=== PATIENT | female | born 1980 | race Caucasian/White ===

== ENCOUNTER 2018-10-16 16:02 | Emergency (ER) | payer OTHER ==
[~2018-10-16] VITALS: Wt 110.0 kg
[2018-10-16] MEDS ORDERED: ATOR40TA68 PO (16:17)
[2018-10-16] MEDS ORDERED: SOD CHLORIDE 0.9% 1,000 ML IV STA (16:17)
[2018-10-16] MEDS ORDERED: KETOROLAC 30 MG INJ IV STA (16:17)
[2018-10-16] MEDS ORDERED: IBUP-1542 PO (18:05)
--- NOTE | 2018-10-16 18:08 | ERD ---
ER Documentation Chief Complaint Chief Complaint LEFT FLANK PAIN X 4 DAYS HPI Patient is a 38-year-old female with no medical problems who presents with left- sided flank pain. She said the pain started 4 days ago, went away, and then came back today. It radiates to her left lower quadrant. She has no fevers. She tried ibuprofen 600 mg. Upon review of old medical records the patient had one previous visit to the ER in 2015. She does have a primary doctor. ROS All systems reviewed and are negative except as per history of present illness. Medications Home Meds Active Scripts Ibuprofen* (Motrin*) 600 Mg Tab, 600 MG PO Q6H PRN for PAIN AND OR ELEVATED TEMP, #30 TAB Prov:ALYSIA JIMENEZ MD 10/16/18 Reported Medications Atorvastatin* (Atorvastatin*) 40 Mg Tablet, 40 MG PO QHS, #30 TAB 10/16/18 Allergies Allergies: Coded Allergies: Penicillins (Verified Allergy, Severe, 01/27/15) PMhx/Soc History of Surgery: No Anesthesia Reaction: No Hx Neurological Disorder: No Hx Respiratory Disorders: No Hx Cardiac Disorders: No Hx Psychiatric Problems: Yes (PT STATES, "3 TIMES".) Hx Miscellaneous Medical Probl: No Hx Alcohol Use: No Hx Substance Use: Yes Hx Tobacco Use: No Smoking Status: Never smoker FmHx Family History: diabetes Physical Exam Vitals Vital Signs Date Temp Pulse Resp B/P (MAP) Pulse Ox O2 O2 Flow FiO2 Time Delivery Rate 10/16/18 99.5 120 18 171/81 95 16:07 (111) Physical Exam Const: No acute distress Head: Atraumatic Eyes: Normal Conjunctiva ENT: Normal External Ears, Nose and Mouth. Neck: Full range of motion. No meningismus. Resp: Clear to auscultation bilaterally Cardio: Regular rate and rhythm, no murmurs Abd: Soft, non tender, non distended. Normal bowel sounds Skin: No petechiae or rashes Back: No midline or flank tenderness Ext: No cyanosis, or edema Neur: Awake and alert Psych: Normal Mood and Affect Result Diagram: 10/16/18 1631 10/16/18 1631 Results 24 hrs Laboratory Tests Test 10/16/18 16:31 10/16/18 16:40 White Blood Count 15.5 10^3/ul Red Blood Count 4.62 10^6/ul Hemoglobin 12.9 g/dl Hematocrit 40.0 % Mean Corpuscular Volume 86.6 fl Mean Corpuscular Hemoglobin 27.9 pg Mean Corpuscular Hemoglobin Concent 32.3 g/dl Red Cell Distribution Width 14.4 % Platelet Count 395 10^3/UL Mean Platelet Volume 11.0 fl Immature Granulocytes % 0.300 % Neutrophils % 65.1 % Lymphocytes % 29.3 % Monocytes % 4.0 % Eosinophils % 0.8 % Basophils % 0.5 % Nucleated Red Blood Cells % 0.0 /100WBC Immature Granulocytes # 0.050 10^3/ul Neutrophils # 10.1 10^3/ul Lymphocytes # 4.5 10^3/ul Monocytes # 0.6 10^3/ul Eosinophils # 0.1 10^3/ul Basophils # 0.1 10^3/ul Nucleated Red Blood Cells # 0.0 10^3/ul Urine Color YELLOW Urine Clarity SLIGHTLY CLOUDY Urine pH 5.0 Urine Specific [place] 1.023 Urine Ketones TRACE mg/dL Urine Nitrite NEGATIVE mg/dL Urine Bilirubin NEGATIVE mg/dL Urine Urobilinogen 1+ mg/dL Urine Leukocyte Esterase NEGATIVE Nery/ul Urine Microscopic RBC 15 /HPF Urine Microscopic WBC 2 /HPF Urine Squamous Epithelial Cells MODERATE /HPF Urine Mucus FEW /HPF Urine Hemoglobin 2+ mg/dL Urine Glucose NEGATIVE mg/dL Urine Total Protein NEGATIVE mg/dl Sodium Level 143 mmol/L Potassium Level 4.1 mmol/L Chloride Level 107 mmol/L Carbon Dioxide Level 28 mmol/L Anion Gap 8 Blood Urea Nitrogen 8 mg/dl Creatinine 0.68 mg/dl Est Glomerular Filtrat Rate mL/min > 60 mL/min Glucose Level 151 mg/dl Calcium Level 9.3 mg/dl Total Bilirubin 0.1 mg/dl Direct Bilirubin 0.00 mg/dl Indirect Bilirubin 0.1 mg/dl Aspartate Amino Transf (AST/SGOT) 30 IU/L Alanine Aminotransferase (ALT/SGPT) 54 IU/L Alkaline Phosphatase 85 IU/L Total Protein 7.6 g/dl Albumin 4.2 g/dl Globulin 3.40 g/dl Albumin/Globulin Ratio 1.23 Lipase 121 U/L POC Beta HCG, Qualitative NEGATIVE Current Medications Medications Dose Sig/Shen Start Time Status Last (Trade) Ordered Route PRN Stop Time Admin Dose Reason Admin Sodium 1,000 ml @ Q1H STAT 10/16/18 DC 10/16/18 Chloride 1,000 mls/hr IV 16:17 10/16/18 16:43 17:16 Ketorolac 30 mg ONCE STAT 10/16/18 DC 10/16/18 Tromethamine IV 16:17 10/16/18 16:44 (Toradol) 16:18 Procedures/MDM CT abdomen pelvis is negative per radiology. Smoking Cessation Therapy: Pt. was lectured for greater than 3 minutes on the health risks of continued smoking and the benefits of cessation. She is a 38-year-old female who presents with left-sided flank pain. The patient has an elevated white blood cell count 15 but no sign of serious infection. I doubt cystitis or pyonephritis or sepsis. There is no sign of kidney stone, bowel obstruction, or other process to explain her flank pain. She is otherwise well-appearing and I believe outpatient management is appropriate. She will need to follow-up closely with her primary doctor within 1 week and will be given a prescription for ibuprofen. Departure Diagnosis: Primary Impression: Flank pain Condition: Fair Patient Instructions: Flank Pain, Uncertain Cause Referrals: Dr. Palacios Additional Instructions: Call your primary care doctor TOMORROW for an appointment during the next 1 WEEK.Tell the receptionist secretary that you were referred from this facility.See the doctor sooner or return here if your condition worsens before your appointment time. ALYSIA JIMENEZ MD October 16, 2018 18:08
[2018-10-16 18:33] VITALS: BP 151/73; PULSE 80; RESP 16
== END 2018-10-16 18:34 | disposition home or self-care (01) ==
LOC: E/R 16:02
DX: R10.32 Left lower quadrant pain (principal)
CPT/HCPCS: 36415; 74176; 80053; 81001; 81025; 83690; 85025; 96374; J1885; J7030; Z7502